=== PATIENT | male | born 1965 | race Caucasian/White ===

== ENCOUNTER → 2020-05-09 | Outpatient (CLI) | payer BC, OTHER | LOC: KOH-I 13:12 | DX: M25.511 Pain in right shoulder (principal); M19.011 Primary osteoarthritis, right shoulder | CPT/HCPCS: 73030 ==

== ENCOUNTER 2021-11-02 03:45 | Emergency (ER) | payer OTHER ==
[2021-11-02 04:33] LABS: HEMOGLOBIN 13.1 gm/dl (14.0-17.5); RED BLOOD COUNT 4.49 M/UL (4.20-5.50); WHITE BLOOD COUNT 8.7 K/UL (4.5-11.0)
[2021-11-02 05:10] LABS: BUN/CREATININE RATIO 14 (0-10)
== END 2021-11-02 05:34 | disposition home or self-care (01) ==
LOC: ER1 03:45
PROVIDERS: Family Medicine
DX: E11.40 Type 2 diabetes mellitus with diabetic neuropathy, unspecified (principal); I10 Essential (primary) hypertension; E66.01 Morbid (severe) obesity due to excess calories; E78.5 Hyperlipidemia, unspecified; Z79.84 Long term (current) use of oral hypoglycemic drugs; Z51.81 Encounter for therapeutic drug level monitoring
CPT/HCPCS: 70450; 80053; 82009; 82550; 82553; 83735; 84484; 85025; 85610; 93005; 99284